=== PATIENT | female | born 1965 | race Caucasian/White ===

== ENCOUNTER 2020-07-19 09:03 | Emergency (ER) | payer BC ==
[~2020-07-19] VITALS: Ht 154.9 cm; Wt 47.2 kg
[2020-07-19 09:09] VITALS: BP_SYST 130
[2020-07-19] MEDS ORDERED: NACL 0.9% 1,000 ML IV ONE (09:15)
[2020-07-19] MEDS ORDERED: KETOROLAC TROMETHAMINE 30 MG VIAL IVP ONE (09:15)
[2020-07-19 09:42] LABS: BASOPHILS % (AUTO) 0.3 % (0.0-2.0); EOSINOPHILS # (AUTO) 0.1 K/uL (0.0-0.4); EOSINOPHILS % (AUTO) 0.7 % (0.0-4.0); HEMATOCRIT 42.4 % (36-48); HEMOGLOBIN 14.4 g/dL (12.0-16.0); LYMPHOCYTES # (AUTO) 1.5 K/uL (1.0-5.5); LYMPHOCYTES % (AUTO) 17.6 % (20.5-51.5); MEAN CORPUSCULAR HEMOGLOBIN 31 pg (27-31); MEAN CORPUSCULAR HGB CONC 34 % (32-36); MEAN CORPUSCULAR VOLUME 91 fL (79.0-98.0); MONOCYTES # (AUTO) 0.7 K/uL (0.0-1.0); MONOCYTES % (AUTO) 8.2 % (1.7-9.3); NEUTROPHILS # (AUTO) 6.2 K/uL (1.8-7.7); NEUTROPHILS % (AUTO) 73.2 % (40.0-70.0); PLATELET COUNT (AUTO) 174 K/uL (130-430); RED BLOOD CELL COUNT(AUTO) 4.66 MIL/uL (4.2-6.2); RED CELL DISTRIBUTION WIDTH 12.8 % (9.0-15.0); WHITE BLOOD COUNT (AUTO) 8.5 K/uL (4.8-10.8)
[2020-07-19 09:55] LABS: CALCIUM 9.4 mg/dL (8.4-11.0); CREATININE 0.92 mg/dL (0.55-1.30); POTASSIUM 3.3 mmol/L (3.5-5.1)
[2020-07-19 10:00] LABS: ALBUMIN 3.5 g/dL (3.4-4.8); TOTAL BILIRUBIN 0.6 mg/dL (0.0-1.0)
[2020-07-19 11:07] LABS: CLARITY/URINE SLIGHTLY CLOUDY (CLEAR); COLOR,URINE YELLOW (YELLOW); PROTEIN URINE NEGATIVE (NEGATIVE)
[2020-07-19 11:08] LABS: BILIRUBIN,URINE NEGATIVE (NEGATIVE); BLOOD, URINE 1+ (NEGATIVE); GLUCOSE,URINE TRACE (NEGATIVE); KETONES,URINE NEGATIVE (NEGATIVE); LEUKOCYTE ESTERASE ,URINE 2+ (NEGATIVE); NITRITE, URINE NEGATIVE (NEGATIVE); UROBILINOGEN,URINE 0.2 (0.2-1.0)
[2020-07-19 11:10] LABS: BACTERIA,URINE None Seen /HPF (None Seen)
[2020-07-19 11:31] VITALS: BP_SYST 130
== END 2020-07-19 11:31 | disposition home or self-care (01) ==
LOC: SED 09:03
DX: N39.0 Urinary tract infection, site not specified (principal)
CPT/HCPCS: 36415; 74176; 80053; 81000; 85025; 87040; 96361; 96374; 99284; J1885; J7030